=== PATIENT | female | born 1965 | race Two or more races ===

== ENCOUNTER 2021-09-16 08:13 | Outpatient (CLI) | payer OTHER | END 2021-09-16 08:31 | disposition home or self-care (01) | LOC: SONOGRAMA 08:13 → MAMO-SONO 09:00 | PROVIDERS: ATTEND Obstetrics & Gynecology Gynecology | DX: N84.0 Polyp of corpus uteri (principal); N94.89 Other specified conditions associated with female genital organs and menstrual cycle ==